=== PATIENT | female | born 1970 | race Caucasian/White ===

== ENCOUNTER 2016-10-16 01:50 | Emergency (ER) | payer MEDICAID ==
[~2016-10-16] VITALS: Ht 154.9 cm; Wt 109.1 kg
[~2016-10-16 01:50] MED LIST: ASPIRIN 32325 MG/TAB PO; ASPIRIN 81M81 MG/TA2 PO; ATIVAN 0.50.5 MG/TAB PO; ATIVAN 1MG T1 MG/TAB PO; BACTRIM DS 8001 TAB PO; CELEXA 20MG20 MG/TAB PO; CEPHALEXIN500 M1 PO; COUMADIN 1010 MG/TAB PO; COUMADIN4 MG PO; DEXILANT60 MG PO; DOXYCYCLINE 10100 MG PO; EFFIENT10 MG PO; FEMIRON20 MG PO; FLEXERIL 1010 MG/TAB PO; GABAPENTIN; HORIZANT600 MG PO; LASIX40 MG PO; LORTAB 5/500 501 TAB; LORTAB 5/500 501 TAB PO; MUCUS RELIEF DM1 TAB PO; NEURONTIN300 MG/CAP PO; NEURONTIN600 MG/TAB PO; OYSCO 500500 M1 PO; PERCOCET 325 MG1 TA2 PO; PLAVIX 75MG TAB75 MG PO; PRAVACHOL 40MG40 MG PO; PRIL40 PO; SEPTRA DS 8001 TAB PO; STOOL SOFTENER100 MG PO; SYNTHROID 0.10.15 MG PO; SYNTHROID0.137 MG PO; SYNTHROID0.2 M1 PO; XARELTO15 MG PO; XARELTO20 MG PO; ZANTAC 300300 MG PO; ZOCOR 10MG10 MG PO
[2016-10-16 03:48] LABS: BASO # 0.1 (0.0-0.2); BASO % 0.9 % (0.0-2.0); EOS # 0.3 (0.0-0.7); EOS % 4.3 % (0-4.0); GRAN % 44.8 % (42.2-75.2); HEMATOCRIT 42.2 % (37.0-47.0); HEMOGLOBIN 14.1 g/dl (12.5-16.0); LYMPH # 2.7 (1.2-3.4); LYMPH % 40.6 % (20.0-51.0); MEAN CELL VOLUME 94 fl (80.0-100.0); MEAN CORPUSCULAR HEMOGLOBIN 31 pg (27.0-31.0); MEAN CORPUSCULAR HGB CONC 33 g/dl (33.0-37.0); MONO # 0.6 (0.1-0.6); MONO % 9.1 % (1.7-9.3); PLATELET COUNT 252 K/mm3 (130-400); WHITE BLOOD COUNT 6.6 K/mm3 (4.8-10.8)
[2016-10-16 04:11] LABS: ADJUSTED CALCIUM 9.4 mg/dL (8.4-10.2); ALBUMIN 4.1 gm/dL (3.5-5.0); BILIRUBIN,TOTAL 0.5 mg/dL (0.0-1.0); CALCIUM 9.5 mg/dL (8.4-10.2); CREATININE, serum 0.85 mg/dL (0.52-1.25); POTASSIUM 4.1 mmol/L (3.4-5.0); TOTAL PROTEIN 7.5 gm/dL (6.4-8.2)
[2016-10-16 04:25] VITALS: BP 106/68; PULSE 75; TEMP 97
== END 2016-10-16 04:30 | disposition home or self-care (01) ==
LOC: COL.ER 01:50
PROVIDERS: Emergency Medicine
DX: T87.89 Other complications of amputation stump (principal); M79.662 Pain in left lower leg; Z89.612 Acquired absence of left leg above knee

== ENCOUNTER 2017-02-13 18:01 | Emergency (ER) | payer MEDICAID ==
[~2017-02-13] VITALS: Ht 154.9 cm; Wt 107.7 kg
[2017-02-13 18:02] VITALS: TEMP 98.5
[2017-02-13 18:58] VITALS: BP 122/69; PULSE 86
== END 2017-02-13 18:58 | disposition home or self-care (01) ==
LOC: COL.ER 18:01
DX: L23.7 Allergic contact dermatitis due to plants, except food (principal); I25.10 Atherosclerotic heart disease of native coronary artery without angina pectoris; K21.9 Gastro-esophageal reflux disease without esophagitis; E07.9 Disorder of thyroid, unspecified; E78.5 Hyperlipidemia, unspecified; G62.9 Polyneuropathy, unspecified; E78.00 Pure hypercholesterolemia, unspecified; F32.9 Major depressive disorder, single episode, unspecified; I82.409 Acute embolism and thrombosis of unspecified deep veins of unspecified lower extremity; Z87.891 Personal history of nicotine dependence; Z79.82 Long term (current) use of aspirin
CPT/HCPCS: J7512

== ENCOUNTER 2017-06-02 22:24 | Emergency (ER) | payer MEDICAID ==
[2017-06-02 22:28] VITALS: BP 144/80; TEMP 97.4
[2017-06-03 01:50] LABS: BASO # 0.1 (0.0-0.2); EOS # 0.3 (0.0-0.7); EOS % 3.4 % (0-4.0); GRAN # 4.2 (1.4-6.5); GRAN % 54.8 % (42.2-75.2); HEMATOCRIT 42.9 % (37.0-47.0); HEMOGLOBIN 14.3 g/dl (12.5-16.0); LYMPH # 2.5 (1.2-3.4); LYMPH % 31.9 % (20.0-51.0); MEAN CELL VOLUME 95 fl (80.0-100.0); MEAN CORPUSCULAR HEMOGLOBIN 32 pg (27.0-31.0); MEAN CORPUSCULAR HGB CONC 33 g/dl (33.0-37.0); MEAN PLATELET VOLUME 9.8 fl (7.4-10.4); MONO # 0.7 (0.1-0.6); MONO % 8.5 % (1.7-9.3); PLATELET COUNT 265 K/mm3 (130-400); RED BLOOD COUNT 4.51 M/mm3 (4.10-5.30); WHITE BLOOD COUNT 7.7 K/mm3 (4.8-10.8)
[2017-06-03 01:53] LABS: COLLECTION METHOD CLEAN CATCH
[2017-06-03 01:58] LABS: MUCOUS Present /lpf; PH 5 (5-8); SQUAMOUS EPITHELIAL 0-2 /hpf; URINE APPEARANCE Clear; URINE BACTERIA None Seen /hpf; URINE BILIRUBIN Negative (NEGATIVE); URINE BLOOD Negative (NEGATIVE); URINE COLOR Yellow; URINE GLUCOSE Negative (NEGATIVE); URINE KETONE Negative (NEGATIVE); URINE LEUKOCYTE ESTERASE Negative (NEGATIVE); URINE PROTEIN(semi-quant) Negative (NEGATIVE); URINE RBC 0-2 /hpf; URINE UROBILINOGEN Negative (NEGATIVE)
[2017-06-03] MEDS ORDERED: PERCOCET 325 MG1 TA2 PO (02:06)
[2017-06-03 02:23] VITALS: PULSE 64
== END 2017-06-03 02:24 | disposition home or self-care (01) ==
LOC: COL.ER 22:24
PROVIDERS: Nurse Practitioner
DX: M79.605 Pain in left leg (principal); E78.5 Hyperlipidemia, unspecified; I10 Essential (primary) hypertension; F32.9 Major depressive disorder, single episode, unspecified; J44.9 Chronic obstructive pulmonary disease, unspecified; E05.00 Thyrotoxicosis with diffuse goiter without thyrotoxic crisis or storm; Z86.718 Personal history of other venous thrombosis and embolism; Z87.891 Personal history of nicotine dependence; Z89.612 Acquired absence of left leg above knee; Z79.82 Long term (current) use of aspirin
CPT/HCPCS: J1170; J2550

== ENCOUNTER 2017-09-24 11:00 | Outpatient (RCR) | payer MEDICAID | END 2017-09-30 | disposition home or self-care (01) | LOC: MKS.ESL.PT | DX: Z47.81 Encounter for orthopedic aftercare following surgical amputation (principal); Z89.612 Acquired absence of left leg above knee; Z97.14 Presence of artificial left leg (complete) (partial); R26.81 Unsteadiness on feet; M54.2 Cervicalgia; Z79.01 Long term (current) use of anticoagulants; Z88.0 Allergy status to penicillin ==

== ENCOUNTER 2017-11-18 09:53 | Outpatient (RCR) | payer MEDICAID | END 2018-02-16 | disposition home or self-care (01) | LOC: WSST | DX: R13.13 Dysphagia, pharyngeal phase (principal) ==

== ENCOUNTER → 2017-11-22 | Outpatient (CLI) | payer MEDICAID | LOC: COL.RAD 07:27 | DX: R13.13 Dysphagia, pharyngeal phase (principal) ==